=== PATIENT | female | born 1935 | race Caucasian/White ===

== ENCOUNTER → 2023-10-04 | Outpatient (CLI) | payer MEDICARE ==
--- NOTE | 2023-10-04 09:14 | XR ---
EXAMINATION TYPE: XR chest 2V DATE OF EXAM: 10/04/2023 8:27 AM CLINICAL INDICATION:Female, 88 years old with history of 2V CH XR; [facility] COMPARISON: Chest radiographs from 10/04/2023. TECHNIQUE: XR chest 2V Frontal and lateral views of the chest. FINDINGS: Lungs/Pleura: There is flattening of the diaphragm with increased lucency of the lungs. No evidence o f pneumothorax, pleural effusion or focal consolidation. Pulmonary vascularity: Unremarkable. Heart/mediastinum: Cardiomediastinal silhouette is unremarkable. Musculoskeletal: No acute osseous pathology. IMPRESSION: 1. No acute cardiopulmonary disease process. 2. COPD changes.
[2023-10-04 15:25] LABS: Basophils # (A) 0.13 X 10*3/uL (0.00-0.10); Basophils % (A) 1.3 %; Eosinophils # (A) 0.33 X 10*3/uL (0.04-0.35); Eosinophils % (A) 3.4 %; HCT 43.7 % (37.2-46.3); HGB 13.7 g/dL (12.0-15.0); Lymphocytes # (A) 3.33 X 10*3/uL (0.90-5.00); Lymphocytes % (A) 34.2 %; MCH 28.2 pg (27.0-32.0); MCHC 31.4 g/dL (32.0-37.0); MCV 89.9 FL (80.0-97.0); Mean Platelet Volume 11.6 FL (9.5-12.2); Monocytes % (A) 6.2 %; NRBC Per 100 WBC 0 X 10*3/uL (0.00-0.01); Neutrophils # (A) 5.32 X 10*3/uL (1.80-7.70); Neutrophils % (A) 54.6 %; Platelet Count 340 X 10*3/uL (140-440); RBC 4.86 X 10*6/uL (4.10-5.20); RDW 14.4 % (11.5-14.5); WBC 9.74 X 10*3/uL (4.50-10.00)
[2023-10-04 15:47] LABS: Erythrocyte Sedimentation Rate 13 mm/Hr (0-30)
[2023-10-04 16:04] LABS: ALT 21 U/L (8-44); AST 24 U/L (13-35); Albumin 4.5 g/dL (3.8-4.9); Albumin/Globulin Ratio 1.88 Ratio (1.60-3.17); Alkaline Phosphatase 96 U/L (41-126); BUN/Creat Ratio 14.25 Ratio (12.00-20.00); Blood Urea Nitrogen 11.4 mg/dL (9.0-27.0); Calcium 9.8 mg/dL (8.7-10.3); Carbon Dioxide 25.7 mmol/L (21.6-31.8); Chloride 102 mmol/L (96-109); Creatine Kinase 111 U/L (26-186); Globulin 2.4 g/dL (1.6-3.3); Glucose 95 mg/dL (70-110); Iron 101 UG/DL (50-170); LDL Cholesterol,Calculated 77.9 mg/dL (0.0-131.0); Magnesium 2.2 mg/dL (1.5-2.4); Phosphorus 4.1 mg/dL (2.4-5.1); Potassium 3.9 mmol/L (3.5-5.5); Sodium 142 mmol/L (135-145); T4, Free (Free Thyroxine) 0.78 ng/dL (0.80-1.80); Total Bilirubin 0.4 mg/dL (0.3-1.2); Total Iron Binding Capacity 445 UG/DL (228-460); Total Protein 6.9 g/dL (6.2-8.2); Uric Acid 3.6 mg/dL (2.9-7.7)
[2023-10-04 16:22] LABS: Thyroid Peroxidase Antibodies <9.0 U/mL (0.0-33.0)
== END | disposition home or self-care (01) ==
LOC: LABWHC1 07:40
PROVIDERS: ATTEND Internal Medicine
DX: Z00.00 Encounter for general adult medical examination without abnormal findings (principal); I10 Essential (primary) hypertension; E53.8 Deficiency of other specified B group vitamins; E05.90 Thyrotoxicosis, unspecified without thyrotoxic crisis or storm; E03.9 Hypothyroidism, unspecified; E87.8 Other disorders of electrolyte and fluid balance, not elsewhere classified; E87.5 Hyperkalemia; E78.5 Hyperlipidemia, unspecified; N39.0 Urinary tract infection, site not specified; E55.9 Vitamin D deficiency, unspecified; J44.9 Chronic obstructive pulmonary disease, unspecified; M10.9 Gout, unspecified; D64.9 Anemia, unspecified; R06.02 Shortness of breath
CPT/HCPCS: 36415; 71046; 80053; 80061; 82306; 82550; 82607; 82728; 82746; 83540; 83550; 83735; 83970; 84100; 84432; 84439; 84443; 84550; 85025; 85652; 86140; 86376

== ENCOUNTER → 2023-10-16 | Outpatient (CLI) | payer MEDICARE ==
--- NOTE | 2023-10-16 18:05 | CA ---
Transthoracic Echo Report Name: Sneha Harrison Age: 88 Gender: F : 1935 Exam Date: 10/16/2023 13:18 Exam Location: [facility] Ht (in): 63 Wt (lb): 125 Ordering Physician: Cortes Montoya MD Attending/Referring Phys: Cortes Montoya MD Chemical Tester Nelda Pedraza RDCS Procedure CPT: Indications: I11.9 HTN Cardiac Hx: Technical Quality: Fair Contrast 1: Total Dose (mL): Contrast 2: Total Dose (mL): MEASUREMENTS (Male / Female) Normal Values 2D ECHO LV Diastolic Diameter PLAX 2.8 cm 4.2 - 5.9 / 3.9 - 5.3 cm LV Systolic Diameter PLAX 2.0 cm IVS Diastolic Thickness 1.0 cm 0.6 - 1.0 / 0.6 - 0.9 cm LVPW Diastolic Thickness 0.9 cm 0.6 - 1.0 / 0.6 - 0.9 cm LV Relative Wall Thickness 0.7 RV Internal Dim ED PLAX 2.6 cm LA Systolic Diameter LX 2.4 cm 3.0 - 4.0 / 2.7 - 3.8 cm LV Diastolic Volume MOD BP 44.9 cm??? 67 - 155 / 56 - 104 cm??? LV Systolic Volume MOD BP 14.5 cm??? 22 - 58 / 19 - 49 cm??? LV Ejection Fraction MOD BP 67.8 % >= 55 % LV Cardiac Index MOD BP 1740.7 cm???/min???m??? LV Diastolic Volume MOD 4C 39.4 cm??? LV Systolic Volume MOD 4C 15.0 cm??? LV Ejection Fraction MOD 4C 61.9 % LV Cardiac Index MOD 4C 1394.8 cm???/min???m??? LV Diastolic Length 4C 5.8 cm LV Systolic Length 4C 4.3 cm LV Diastolic Volume MOD 2C 48.9 cm??? LV Systolic Volume MOD 2C 13.5 cm??? LV Ejection Fraction MOD 2C 72.4 % LV Cardiac Index MOD 2C 2025.7 cm???/min???m??? LV Diastolic Length 2C 6.2 cm LV Systolic Length 2C 4.5 cm LA Volume 21.5 cm??? 18 - 58 / 22 - 52 cm??? LA Volume Index 13.5 cm???/m??? 16 - 28 cm???/m??? M-MODE Aortic Root Diameter MM 2.8 cm DOPPLER AV Peak Velocity 88.7 cm/s AV Peak Gradient 3.1 mmHg MV Area PHT 2.9 cm??? Mitral E Point Velocity 79.3 cm/s Mitral A Point Velocity 100.9 cm/s Mitral E to A Ratio 0.8 MV Deceleration Time 260.5 ms LV E' Lateral Velocity 5.3 cm/s Mitral E to LV E' Lateral Ratio 15.1 LV E' Septal Velocity 5.6 cm/s Mitral E to LV E' Septal Ratio 14.2 TR Peak Velocity 252.1 cm/s TR Peak Gradient 25.4 mmHg Right Ventricular Systolic Press 29.4 mmHg FINDINGS Left Ventricle Left ventricular ejection fraction is estimated at 55-60 %. Small left ventricular cavity. Left ventricular wall thickness normal.Normal left ventricular systolic function with no obvious regional wall motion abnormalities. Right Ventricle Normal right ventricular size. Right ventricular systolic pressure within normal limits. Right Atrium Normal right atrial size. Left Atrium Normal left atrial size. Mitral Valve Structurally normal mitral valve. No mitral stenosis or prolapse.trace to mild mitral regurgitation. Aortic Valve Trileaflet aortic valve. No aortic valve stenosis or regurgitation. Tricuspid Valve Structurally normal tricuspid valve. Mild tricuspid regurgitation. Pulmonic Valve Structurally normal pulmonic valve. Pericardium No pericardial effusion. Aorta Normal size aortic root and proximal ascending aorta. CONCLUSIONS 1. Normal left ventricle size and systolic function 2. Trace to mild mitral with mild tricuspid regurgitation Previewed by: Dr. Los Travis MD (Electronically Signed) Final Date: 16 October 2023 18:05
--- NOTE | 2023-10-16 22:50 | MM ---
Reason for Exam: Screening (asymptomatic). Patient History: Menarche at age 15. First Full-Term at age 20. Postmenopausal. Mother had breast cancer, age 40. Tissue Density: There are scattered areas of fibroglandular density. Findings: Analyzed By CAD. The pattern is symmetrical. Benign vascular calcification is present bilaterally. No suspicious groups of microcalcifications, spiculated or lobular masses, architectural distortion or other secondary signs of malignancy are mammographically apparent. Overall Assessment: Benign, BI-RAD 2 Management: Screening Mammogram of both breasts in 1 year. A negative mammogram report should not preclude additional follow up of suspicious palpable abnormalities. Patient should continue monthly self breast exam. A clinical breast exam by your physician is recommended on an annual basis and results should be correlated with mammographic findings. Electronically signed and approved by: Art Casey D.O. Radiologis
== END | disposition home or self-care (01) ==
LOC: RADMAMWWP 12:31
PROVIDERS: ATTEND Internal Medicine
DX: Z12.31 Encounter for screening mammogram for malignant neoplasm of breast (principal); I11.9 Hypertensive heart disease without heart failure; Z78.0 Asymptomatic menopausal state; Z80.3 Family history of malignant neoplasm of breast; I35.0 Nonrheumatic aortic (valve) stenosis
CPT/HCPCS: 77063; 77067; 93306

== ENCOUNTER → 2023-10-16 | Outpatient (CLI) | payer MEDICARE | END | disposition home or self-care (01) | LOC: RADXRMAIN 13:02 | PROVIDERS: ATTEND Internal Medicine | DX: Z53.9 Procedure and treatment not carried out, unspecified reason (principal) ==

== ENCOUNTER → 2023-11-12 | Outpatient (CLI) | payer MEDICARE ==
[2023-11-12 16:21] LABS: Thyroid Peroxidase Antibodies <9.0 U/mL (0.0-33.0)
[2023-11-13 01:12] LABS: T4, Free (Free Thyroxine) 0.85 ng/dL (0.80-1.80)
== END | disposition home or self-care (01) ==
LOC: LABWHC1 09:46
PROVIDERS: ATTEND Internal Medicine
DX: E03.9 Hypothyroidism, unspecified (principal)
CPT/HCPCS: 36415; 84432; 84439; 84443; 86376